=== PATIENT | male | born 1965 | race Caucasian/White ===

== ENCOUNTER 2020-11-26 11:03 | Emergency (ER) | payer MEDICAID, SELFPAY ==
[2020-11-26] VITALS (7 sets, daily range): BP systolic 103–131; BP diastolic 50–79; PULSE 80–92; RESP 16–19; TEMP 36.8; O2SAT 97–100; BMI 34.7; BMI 38.0
--- NOTE | 2020-11-26 11:25 | XR_ITS ---
PROCEDURE: XR CHEST PORTABLE CLINICAL HISTORY: cough COMPARISON: No exams were available for comparison FINDINGS: The cardiomediastinal silhouette and pulmonary vascularity are within normal limits. The lungs are clear without infiltrates, suspicious nodules, or pleural effusions. No acute bony abnormalities. IMPRESSION: No acute findings. Dictated by: Lorenzo Gonzalez MD 11/26/2020 13:15 Lorenzo Gonzalez MD in [facility] 11/26/2020 13:15
--- NOTE | 2020-11-26 11:25 | CT_ITS ---
PROCEDURE: CT ABDOMEN PELVIS W CON CLINICAL INDICATION: left flank pain, fever COMPARISON: No exams were available for comparison TECHNIQUE: IV Contrast: 75ML Isovue 370 Oral Contrast None Axial images obtained with sagittal and coronal reformats. All CT scans at the facility use one or more dose reduction, viz: automated exposure control, ma/kV adjustment per patient size (including targeted exams where dose is matched to indication, i.e. head), or iterative reconstruction technique. FINDINGS: LOWER THORAX: No acute finding ABDOMEN & PELVIS: Fatty liver. No focal liver lesion identified. Questionable small gallstone. The spleen and adrenal glands have an unremarkable appearance. Along the superior aspect of the pancreatic head there is a 1.8 x 1.6 cm soft tissue density. This may represent a small peripancreatic lymph node but is incompletely separable from the pancreas on the axial images. Nonemergent MRI of the pancreas without and with gadolinium enhancement may provide further evaluation. No pancreatic ductal dilatation. No renal or ureteral calculi. There are mildly prominent retroperitoneal lymph nodes measuring up to 3 x 1 cm in the left periaortic region. There are mildly prominent nodes also in the left common iliac area. The prostate gland is enlarged and somewhat lobular measuring 5.7 by 5 cm. No evidence of appendicitis. Colonic diverticulosis without diverticulitis. No acute bony findings. There is a well-circumscribed benign-appearing lucent lesion of the right femoral neck measuring approximately 12 mm with sclerotic margin and may represent a benign cortical defect or bone cyst. IMPRESSION: 1. No acute finding. 2. Mild retroperitoneal and left common iliac adenopathy etiology undetermined. These nodes could be reactive or neoplastic. Follow-up suggested to confirm stability. 3. 1.8 cm soft tissue nodular area along the pancreatic head and may represent a small peripancreatic lymph node. Consider nonemergent MRI of the pancreas without and with gadolinium enhancement for confirmation as a solid pancreatic neoplasm is not excluded. 4. Enlarged prostate Dictated by: Lorenzo Gonzalez MD 11/26/2020 13:11 Lorenzo Gonzalez MD in [facility] 11/26/2020 13:11
--- NOTE | 2020-11-26 11:31 | [facility].EDGENADL ---
ED Disposition Clinical Impression: Lymphadenopathy, abdominal, Enlarged prostate, Pancreatic abnormality Disposition: Home, Self-Care Condition on Discharge: Good Instructions: DI for Acute Abdominal Pain Additional Instructions: You have been evaluated for abdominal pain. Your CT scan shows enlarged lymph nodes in your abdomen. Enlarged prostate. Abnormal growth on your pancreas. It is very important that you follow-up with your primary care doctor as soon as available. We have sent off screening tests for prostate cancer (PSA) and pancreatic cancer (CA 19-9). You should follow-up with an MRI, pancreas protocol. You may have this performed at [facility]. Please check with your insurance and PCP to make sure it is covered. Return to the emergency department at once if you have any new or worsening symptoms, abdominal pain, vomiting, weight loss, other concerns. Referrals: Rk Hutchins [Primary Care Provider] - Time of Disposition: 13:52 - Critical Care Critical Care Time: No Attestation: On 11/26/20, the high probability of a clinically significant, sudden or life threatening deterioration of the following system(s) required my full and direct attention, intervention and personal management. The time I documented below is in addition to time spent performing reported procedures but includes the following listed in this critical care notation. Medical Decision Making - Medical Records Medical records reviewed: Yes: I reviewed the patient's medical records. - Fly Inquiry Pt receiving controlled substance: No Vital Signs: 11/26/20 11:22 11/26/20 11:31 11/26/20 11:45 Temperature 98.3 F Temperature Source Oral Pulse Rate 86 90 Pulse Rate [Right] 92 H Respiratory Rate 16 Blood Pressure 103/50 L 103/50 L Blood Pressure [Right Arm] 131/79 Blood Pressure Mean 67 Blood Pressure Mean [Right Arm] 96 Blood Pressure Source Blood Pressure Source [Right Arm] Automatic Cuff Blood Pressure Position Blood Pressure Position [Right Arm] Sitting 02 Sat by Pulse Oximetry 98 97 98 Oxygen Delivery Method 11/26/20 12:30 11/26/20 13:01 11/26/20 13:15 Temperature Temperature Source Pulse Rate 88 Pulse Rate [Right] Respiratory Rate Blood Pressure 119/73 121/74 121/74 Blood Pressure [Right Arm] Blood Pressure Mean 84 83 Blood Pressure Mean [Right Arm] Blood Pressure Source Blood Pressure Source [Right Arm] Blood Pressure Position Blood Pressure Position [Right Arm] 02 Sat by Pulse Oximetry 100 Oxygen Delivery Method 11/26/20 13:57 Temperature 98.3 F Temperature Source Oral Pulse Rate 80 Pulse Rate [Right] Respiratory Rate 19 Blood Pressure 120/78 Blood Pressure [Right Arm] Blood Pressure Mean Blood Pressure Mean [Right Arm] Blood Pressure Source Automatic Cuff Blood Pressure Source [Right Arm] Blood Pressure Position Sitting Blood Pressure Position [Right Arm] 02 Sat by Pulse Oximetry Oxygen Delivery Method Room Air - Lab Data Lab Results 11/26/20 11:10: Urine Color Yellow, Urine Appearance Clear, Urine pH 6.0, Ur Specific [place] 1.020, Urine Protein Trace, Urine Glucose (UA) Negative, Urine Ketones Negative, Urine Blood Negative, Urine Nitrate Negative, Urine Bilirubin 1+ A, Urine Urobilinogen 4.0, Ur Leukocyte Esterase Negative, Urine RBC None, Urine WBC 3-5, Ur Squamous Epith Cells 3-5, Urine Bacteria None 11/26/20 11:15: WBC 4.6 L, RBC 5.05, Hgb 15.6, Hct 45.9, MCV 90.8, MCH 30.9, MCHC 34.0, RDW 13.0, Plt Count 226, MPV 8.9, Neut % (Auto) 60.2, Lymph % (Auto) 33.2, Kerr % (Auto) 4.8, Eos % (Auto) 0.1, Baso % (Auto) 1.7, Neut # (Auto) 2.8, Lymph # (Auto) 1.5, Kerr # (Auto) 0.2, Eos # (Auto) 0.0, Baso # (Auto) 0.1 11/26/20 11:15: Sodium 135 L, Potassium 3.5, Chloride 100, Carbon Dioxide 25, Anion Gap 13.5, BUN 16, Creatinine 1.20, Estimated Creat Clear 112, Estimated GFR 62, Est GFR ( Amer) 76, Glucose 115 H
[2020-11-26 11:34] LABS: Microscopic, Urine URINE MICROSCOPIC (MICROSCOPIC)
[2020-11-26 11:35] LABS: Appearance,Urine CLEAR (Clear); Blood, Urine Negative (Negative); Color,Urine YELLOW (Yellow); Glucose,Urine (UA) Negative (Negative); Ketones,Urine Negative (Negative); Leukocyte Esterase,Urine Negative (Negative); Nitrate,Urine Negative (Negative); Protein,Urine TRACE (Negative)
[2020-11-26 11:36] LABS: Basophils # 0.1 K/mm3 (0-0.2); Basophils % 1.7 % (0.1-2.0); Eosinophils % 0.1 % (0.1-12.0); Hematocrit 45.9 % (42.0-52.0); Hemoglobin 15.6 g/dL (14.1-18.0); Lymphocytes # 1.5 K/mm3 (0.7-4.5); Lymphocytes % 33.2 % (10-50); Mean Corpuscular Hemoglobin 30.9 pg (27.0-31.2); Mean Corpuscular Volume 90.8 fl (80-94); Mean Platelet Volume 8.9 fl (7.4-10.4); Monocytes # 0.2 K/mm3 (0.1-1.0); Monocytes % 4.8 % (1.7-9.3); Neutrophils # 2.8 K/mm3 (1.8-7.8); Neutrophils % 60.2 % (37.0-80.0); Platelet Count 226 K/mm3 (142-424); Red Blood Count 5.05 M/mm3 (4.60-6.20); White Blood Count 4.6 K/mm3 (4.8-10.8)
[2020-11-26 11:39] LABS: Bilirubin,Urine 1+ (Negative)
[2020-11-26 11:44] LABS: Chloride 100 mmol/L (98-107)
[2020-11-26 11:45] LABS: Potassium 3.5 mmoL/L (3.5-5.1); Sodium 135 mmol/L (136-145)
[2020-11-26 11:47] LABS: Alanine Aminotransferase 80 U/L (12-78); Alkaline Phosphatase 110 U/L (38-126); Aspartate Amino Transferase 64 U/L (17-59); Bilirubin,Total 0.7 mg/dl (0.2-1.3); Blood Urea Nitrogen 16 mg/dl (9-20); Creatinine Clearance Estimated 112 mL/min (50-200); Estimated Glomerular Filt Rate 62 ml/min (>60); GFR (African American) 76 ML/MIN (>60)
[2020-11-26 11:48] LABS: Albumin Level 4.3 g/dl (3.5-5.0); Albumin/Globulin Ratio 1.3 (1.1-1.8); Anion Gap 13.5 mEq/L (5-15); Calcium 9.3 mg/dl (8.4-10.2); Carbon Dioxide 25 mmol/L (22.0-30.0); Globulin 3.2 g/dL (1.3-3.2); Glucose 115 mg/dl (74-100); Lipase 212 U/L (23-300); Total Protein,Serum 7.5 g/dl (6.3-8.2)
--- NOTE | 2020-11-26 12:35 | PC.NURSE ---
patient wheeled to CT
--- NOTE | 2020-11-26 12:51 | PC.NURSE ---
pt returning from CT
--- NOTE | 2020-11-26 12:51 | PC.NURSE ---
patient returned from CT
--- NOTE | 2020-11-26 13:31 | PC.NURSE ---
MD at bedside updating pt on plan of care and results thus far.
[2020-11-26 14:12] LABS: Prostate Specific Ag Screen 1.3 ng/ml (0.0-4.0)
[2020-11-28 13:30] LABS: CA 19-9 30 U/mL (0-35)
== END 2020-11-26 14:00 | disposition home or self-care (01) ==
PROVIDERS: Emergency Provider Emergency Medicine; PCP Family Medicine
DX: N40.1 Benign prostatic hyperplasia with lower urinary tract symptoms (principal); R31.9 Hematuria, unspecified; R59.0 Localized enlarged lymph nodes; Z87.891 Personal history of nicotine dependence
CPT/HCPCS: 71045; 74177; 80053; 81001; 83690; 85025; 86316; 96365; 99283; G0103; Q9967